=== PATIENT | female | born 1985 | race Two or more races ===

== ENCOUNTER 2021-08-18 11:19 | Outpatient (CLI) | payer OTHER | END 2021-08-18 13:42 | disposition home or self-care (01) | LOC: SONOGRAMA 11:19 | PROVIDERS: ATTEND Obstetrics & Gynecology | DX: N84.0 Polyp of corpus uteri (principal) ==

== ENCOUNTER 2021-12-01 07:25 | Day surgery (SDC) | payer OTHER | END 2021-12-01 14:00 | disposition home or self-care (01) | LOC: CIR.AMB 07:25 | PROVIDERS: ATTEND Obstetrics & Gynecology | DX: N85.01 Benign endometrial hyperplasia (principal); N84.0 Polyp of corpus uteri; M35.00 Sjogren syndrome, unspecified; E66.9 Obesity, unspecified; Z20.822 Contact with and (suspected) exposure to COVID-19 ==